=== PATIENT | male | born 2000 | race Caucasian/White ===

== ENCOUNTER → 2023-02-02 | Outpatient (CLI) | payer OTHER | LOC: M PLAIMG 07:13 | PROVIDERS: ATTEND Nurse Practitioner Family | DX: M25.531 Pain in right wrist (principal) ==

== ENCOUNTER 2023-06-30 09:25 | Emergency (ER) | payer OTHER ==
[~2023-06-30] VITALS: Ht 188 cm; Wt 70.5 kg
[2023-06-30] MEDS ORDERED: TIZA4CAP6 PO (09:56)
[2023-06-30] MEDS ORDERED: GABA-284 PO (09:56)
[2023-06-30 09:57] VITALS: BP 128/83; TEMP 98.5; O2SAT 97
[2023-06-30] MEDS ORDERED: KETOROLAC 60MG 2ML VIAL IM ONE (12:25)
[2023-06-30] MEDS ORDERED: LIDOCAINE 5% (LIDODERM) PATCH TD ONE (12:25)
[2023-06-30] MEDS ORDERED: ACETAMINOPHEN TAB 650MG DOSE (2X325MG) PO ONE (12:25)
[2023-06-30] MEDS ORDERED: MEDR4PAK PO (12:29)
== END 2023-06-30 12:54 | disposition home or self-care (01) ==
LOC: M ED 09:25 → EDBD 09:25 → M ED 12:54
DX: M51.37 Other intervertebral disc degeneration, lumbosacral region (principal); M54.50 Low back pain, unspecified; Z79.899 Other long term (current) drug therapy
CPT/HCPCS: 96372; 99283; J1885